=== PATIENT | male | born 1980 | race Caucasian/White ===

== ENCOUNTER 2022-10-22 16:59 | Emergency (ER) | payer OTHER ==
[2022-10-22 17:16] VITALS: BP 125/78; PULSE 75; RESP 16; TEMP 98.6; BMI 30.8
[2022-10-22] MEDS ORDERED: predniSONE 20 MG TABLET (UD) PO ONE (18:24)
[2022-10-22] MEDS ORDERED: predniSONE 20 MG TABLET (UD) ONE (20:15)
== END 2022-10-22 21:01 | disposition home or self-care (01) ==
LOC: JERFT 16:59
DX: L25.9 Unspecified contact dermatitis, unspecified cause (principal)
CPT/HCPCS: 99283-25

== ENCOUNTER 2023-12-02 14:24 | Emergency (ER) | payer OTHER ==
[2023-12-02 14:29] VITALS: BP 125/80; PULSE 81; RESP 18; TEMP 99; BMI 32.7
[2023-12-02] MEDS ORDERED: DEXAMETHASONE SOD PHOSPHATE 10 MG/1 ML VIAL IVPUSH ONE (15:13)
[2023-12-02] MEDS ORDERED: FAMOTIDINE 20 MG/50 ML IVPB 20 MG/50 ML MG IVPB ONE ×2 (15:13→15:34)
[2023-12-02] MEDS ORDERED: CEPHALEXIN MONOHYDRATE 500 MG CAPSULE (UD) PO ONE (15:15)
[2023-12-02] MEDS ORDERED: DEXAMETHASONE SOD PHOSPHATE 10 MG/1 ML VIAL ONE (15:34)
[2023-12-02] MEDS ORDERED: CEPHALEXIN MONOHYDRATE 500 MG CAPSULE (UD) ONE (15:34)
[2023-12-02 16:23] LABS: BASO % 0.6 % (0-2.0); EOS % 9.1 % (0-4.5); HEMATOCRIT 44.4 % (35.4-49); HEMOGLOBIN 15.5 GM/dL (11.7-16.9); LYMPH % 25.5 % (8-40); MCH 39.1 pg (25.7-33.7); MEAN CELL VOLUME 111.6 fl (80-96); MEAN PLT VOLUME 7.7 fl (7.5-11.1); MONO % 5.6 % (3.8-10.2); NEUT % 59.2 % (42.8-82.8); PLATELET COUNT 265 10^3/uL (134-434); RBC 3.98 M/mm3 (4.00-5.60); RDW 15.2 % (11.9-15.9); WHITE BLOOD COUNT 4.2 K/mm3 (4.0-10.0)
[2023-12-02 16:40] LABS: POTASSIUM 4.1 mmol/L (3.5-5.1)
[2023-12-02 16:42] LABS: CALCIUM 8.8 mg/dL (8.5-10.1)
[2023-12-02 16:43] LABS: ALBUMIN 3.8 g/dl (3.4-5.0); BLOOD UREA NITROGEN 13.4 mg/dL (7-18)
[2023-12-02 16:45] LABS: CREATININE 1.1 mg/dL (0.55-1.3)
[2023-12-02 17:15] LABS: ANISOCYTOSIS 2+; MACROCYTOSIS 0; OVALOCYTE 1+
== END 2023-12-02 18:14 | disposition home or self-care (01) ==
LOC: JERFT 14:24
PROC: 3E033GC Introduction of Other Therapeutic Substance into Peripheral Vein, Percutaneous Approach (ICD-10-PCS; principal; 2023-12-02)
PROC: 3E033GC Introduction of Other Therapeutic Substance into Peripheral Vein, Percutaneous Approach (ICD-10-PCS; 2023-12-02)
PROC: 3E033GC Introduction of Other Therapeutic Substance into Peripheral Vein, Percutaneous Approach (ICD-10-PCS; 2023-12-02)
DX: L20.9 Atopic dermatitis, unspecified (principal); R21 Rash and other nonspecific skin eruption
CPT/HCPCS: 36415; 80053; 83036; 85025; 99284-25; J1100

== ENCOUNTER 2023-12-24 16:45 | Emergency (ER) | payer OTHER ==
[2023-12-24 16:51] VITALS: BP 129/87; PULSE 93; RESP 18; TEMP 97.9; BMI 33.0
[2023-12-24] MEDS ORDERED: AMPICILLIN NA/SULBACTAM NA 3 GM in DEXTROSE 5%-WATER 100 ML IVPB ONE (17:21)
[2023-12-24] MEDS ORDERED: methylPREDNISolone NA SUCC 125 MG/2 ML VIAL IVPB ONE (17:21)
[2023-12-24] MEDS ORDERED: AMPICILLIN NA/SULBACTAM NA 3 GM VIAL ONE (18:06)
[2023-12-24] MEDS ORDERED: methylPREDNISolone NA SUCC 125 MG/2 ML VIAL ONE (18:07)
[2023-12-24] MEDS ORDERED: KETOROLAC TROMETHAMINE 30 MG/1 ML VIAL IVPUSH ONE (18:32)
[2023-12-24] MEDS ORDERED: SODIUM CHLORIDE 0.9% 500 ML INFUS.BAG IV ONE (18:32)
[2023-12-24] MEDS ORDERED: FLUCONAZOLE 150 MG TABLET PO ONE (18:36)
[2023-12-24 18:37] LABS: BASO % 0.3 % (0-2.0); EOS % 9.7 % (0-4.5); HEMATOCRIT 42.4 % (35.4-49); HEMOGLOBIN 15.3 GM/dL (11.7-16.9); LYMPH % 40.4 % (8-40); MEAN CELL VOLUME 111.8 fl (80-96); MEAN PLT VOLUME 7.7 fl (7.5-11.1); MONO % 7.7 % (3.8-10.2); NEUT % 41.9 % (42.8-82.8); PLATELET COUNT 221 10^3/uL (134-434); RBC 3.79 M/mm3 (4.00-5.60); RDW 14.5 % (11.9-15.9); WHITE BLOOD COUNT 3.4 K/mm3 (4.0-10.0)
[2023-12-24] MEDS ORDERED: KETOROLAC TROMETHAMINE 30 MG/1 ML VIAL ONE (18:37)
[2023-12-24 18:40] LABS: MCH 40.3 pg (25.7-33.7)
[2023-12-24 18:57] LABS: CALCIUM 9.1 mg/dL (8.5-10.1)
[2023-12-24 18:58] LABS: BLOOD UREA NITROGEN 15.2 mg/dL (7-18)
[2023-12-24 19:01] LABS: CREATININE 1.1 mg/dL (0.55-1.3)
[2023-12-24 19:02] LABS: BILIRUBIN,TOTAL 0.7 mg/dL (0.2-1); TOT PROT 8.3 g/dl (6.4-8.2)
[2023-12-24 19:25] LABS: ANISOCYTOSIS 2+; MACROCYTOSIS 2+
== END 2023-12-24 20:51 | disposition home or self-care (01) ==
LOC: JERFT 16:45
PROC: 3E03329 Introduction of Other Anti-infective into Peripheral Vein, Percutaneous Approach (ICD-10-PCS; principal; 2023-12-24)
PROC: 3E0333Z Introduction of Anti-inflammatory into Peripheral Vein, Percutaneous Approach (ICD-10-PCS; 2023-12-24)
PROC: 3E033GC Introduction of Other Therapeutic Substance into Peripheral Vein, Percutaneous Approach (ICD-10-PCS; 2023-12-24)
DX: R21 Rash and other nonspecific skin eruption (principal); B35.4 Tinea corporis; L03.311 Cellulitis of abdominal wall
CPT/HCPCS: 36415; 80053; 85025; 99284-25

== ENCOUNTER 2024-07-06 18:40 | Inpatient (IN) | payer OTHER ==
[2024-07-06 18:50] VITALS: BMI 30.9
[2024-07-06] MEDS: SODIUM CHLORIDE 0.9% 500 ML INFUS.BAG IV ONE (20:31)
[2024-07-06 20:33] LABS: BASO % 0.2 % (0-2.0); EOS % 2.1 % (0-4.5); HEMATOCRIT 16.6 % (35.4-49); LYMPH % 37.2 % (8-40); MEAN CELL VOLUME 118.9 fl (80-96); MEAN PLT VOLUME 7.3 fl (7.5-11.1); MONO % 2.9 % (3.8-10.2); NEUT % 57.6 % (42.8-82.8); PLATELET COUNT 131 10^3/uL (134-434); RDW 18.5 % (11.9-15.9); WHITE BLOOD COUNT 2.3 K/mm3 (4.0-10.0)
[2024-07-06 20:38] LABS: URINE APPEARANCE CLEAR; URINE BILIRUBIN NEGATIVE (NEGATIVE); URINE COLOR YELLOW; URINE GLUCOSE (UA) NEGATIVE (NEGATIVE); URINE KETONE NEGATIVE (NEGATIVE); URINE LEUK ESTERASE NEGATIVE (NEGATIVE); URINE NITRITE NEGATIVE (NEGATIVE); URINE PROTEIN NEGATIVE (NEGATIVE)
[2024-07-06 20:40] LABS: MCH 42.8 pg (25.7-33.7)
[2024-07-06 20:52] LABS: POTASSIUM 4.2 mmol/L (3.5-5.1)
[2024-07-06 20:54] LABS: CALCIUM 8.6 mg/dL (8.5-10.1)
[2024-07-06 20:55] LABS: BLOOD UREA NITROGEN 15.6 mg/dL (7-18)
[2024-07-06 20:58] LABS: CREATININE 1.2 mg/dL (0.55-1.3)
[2024-07-06 20:59] LABS: BILIRUBIN,TOTAL 1.7 mg/dL (0.2-1)
[2024-07-06 21:18] LABS: BILIRUBIN,DIRECT 0.4 mg/dL (0.0-0.2)
[2024-07-06 21:34] LABS: ANISOCYTOSIS 3+; MACROCYTOSIS 2+; OVALOCYTE 1+; TEAR DROP CELLS 1+
[2024-07-06 21:40] LABS: INR 1.1 (0.83-1.09); PROTHROMBIN TIME (PATIENT) 12.4 SEC (9.7-13.0)
[2024-07-06 21:43] LABS: ACTIVATED PTT 26.2 SECONDS (25.2-36.5)
[2024-07-06 21:51] LABS: HIV INTERPRETATION NEGATIVE (NEGATIVE)
[2024-07-06 21:54] LABS: BILIRUBIN,DIRECT 0.4 mg/dL (0.0-0.2)
[2024-07-06 21:56] LABS: BILIRUBIN,TOTAL 1.7 mg/dL (0.2-1)
[2024-07-06 22:04] LABS: IRON SERUM 172 ug/dL (50-175); TOTAL IRON BINDING CAPACITY 221 ug/dL (250-450)
[2024-07-06 22:13] LABS: POTASSIUM 4.2 mmol/L (3.5-5.1)
[2024-07-06 22:14] LABS: CALCIUM 8.5 mg/dL (8.5-10.1)
[2024-07-06 22:15] LABS: BLOOD UREA NITROGEN 13.6 mg/dL (7-18)
[2024-07-06] MEDS ORDERED: ACETAMINOPHEN 325 MG TABLET (FP) ONE (23:08)
[2024-07-06] MEDS: ACETAMINOPHEN 325 MG TABLET (FP) PO ONE (23:17)
[2024-07-07 02:42] LABS: RETICULOCYTES 2.35 % (0.5-1.5)
[2024-07-07 07:37] LABS: MCH 39.8 pg (25.7-33.7); MCHC 36.5 g/dl (32.0-35.9); MEAN CELL VOLUME 109.1 fl (80-96); MEAN PLT VOLUME 7.5 fl (7.5-11.1); PLATELET COUNT 119 10^3/uL (134-434); RBC 2.02 M/mm3 (4.00-5.60); RDW 29.5 % (11.9-15.9)
[2024-07-07 07:40] LABS: WHITE BLOOD COUNT 1.9 K/mm3 (4.0-10.0)
[2024-07-07 08:08] LABS: CHLORIDE 105 mmol/L (98-107); POTASSIUM 3.9 mmol/L (3.5-5.1); SODIUM 139 mmol/L (136-145)
[2024-07-07 08:31] LABS: ANION GAP 7 mmol/L (4-13); BLOOD UREA NITROGEN 14.5 mg/dL (7-18); CALCIUM 8.6 mg/dL (8.5-10.1); CO2 28 mmol/L (21-32); GLUCOSE,RANDOM 116 mg/dL (74-106); MAGNESIUM 2.3 mg/dL (1.8-2.4)
[2024-07-07 08:34] LABS: PHOSPHOROUS 4.9 mg/dL (2.5-4.9)
[2024-07-07 09:05] LABS: LDH > 4000 U/L (87-246)
[2024-07-07] MEDS: ENOXAPARIN NA (PORCINE) 40 MG/0.4 ML DISP.SYRIN SQ SCH (11:58)
[2024-07-07 12:25] VITALS: RESP 18
[2024-07-07 12:58] LABS: BASO % 0.1 % (0-2.0); EOS % 3.3 % (0-4.5); HEMATOCRIT 20.8 % (35.4-49); HEMOGLOBIN 7.4 GM/dL (11.7-16.9); LYMPH % 51.6 % (8-40); MCH 38.4 pg (25.7-33.7); MCHC 35.6 g/dl (32.0-35.9); MEAN CELL VOLUME 107.8 fl (80-96); MEAN PLT VOLUME 7.3 fl (7.5-11.1); MONO % 2.3 % (3.8-10.2); NEUT % 42.7 % (42.8-82.8); PLATELET COUNT 112 10^3/uL (134-434); RBC 1.93 M/mm3 (4.00-5.60)
[2024-07-07 13:05] LABS: WHITE BLOOD COUNT 1.6 K/mm3 (4.0-10.0)
[2024-07-07] MEDS: CYANOCOBALAMIN (VITAMIN B-12) 1000 MCG/1 ML VIAL IM SCH (13:27)
[2024-07-07 13:43] LABS: ANISOCYTOSIS 3+; MACROCYTOSIS 0; OVALOCYTE 2+; TARGET CELLS 1+
[2024-07-08 10:00] LABS: HEMATOCRIT 22.6 % (35.4-49); HEMOGLOBIN 8.1 GM/dL (11.7-16.9); MCH 39.4 pg (25.7-33.7); MEAN CELL VOLUME 109.5 fl (80-96); MEAN PLT VOLUME 7.4 fl (7.5-11.1); PLATELET COUNT 116 10^3/uL (134-434); RBC 2.06 M/mm3 (4.00-5.60); RDW 29.9 % (11.9-15.9)
[2024-07-08] MEDS: ACETAMINOPHEN 325 MG TABLET (FP) PO PRN (10:29)
[2024-07-08 10:54] LABS: ANISOCYTOSIS 2+; MACROCYTOSIS 2+; OVALOCYTE 1+
[2024-07-08 13:56] VITALS: BP 120/86; PULSE 80; TEMP 98.4
== END 2024-07-08 17:40 | disposition home or self-care (01) | DRG 810 ==
LOC: JER 18:40 → JERBED 21:29 → J6S 07-07 08:34
PROVIDERS: ADMIT Internal Medicine; ATTEND Internal Medicine
DX: D61.818 Other pancytopenia (principal); L29.9 Pruritus, unspecified; E53.8 Deficiency of other specified B group vitamins; G62.9 Polyneuropathy, unspecified; R26.9 Unspecified abnormalities of gait and mobility; D58.9 Hereditary hemolytic anemia, unspecified
CPT/HCPCS: 0241U-QW; 36415; 36430; 80048; 80053; 81003; 82247; 82248; 82272; 82607; 82746; 82962; 83010; 83516; 83540; 83550; 83615; 83735; 84100; 84439; 84443; 85025; 85027; 85045; 85362; 85610; 85730; 86160; 86162; 86340; 86803; 86850; 86880; 86900; 86901; 86922; 87086; 87389; 93005; 93010; 97116-GP; 97162-GP; 99285-25; P9038; P9058

== ENCOUNTER 2024-09-24 17:38 | Emergency (ER) | payer OTHER ==
[2024-09-24 17:45] VITALS: BP 125/72; PULSE 69; RESP 18; TEMP 98.4; BMI 30.2
[2024-09-24 19:11] LABS: BASO % 0.1 % (0-2.0); HEMATOCRIT 42.3 % (35.4-49); LYMPH % 18.4 % (8-40); MCH 28.2 pg (25.7-33.7); MEAN CELL VOLUME 85.4 fl (80-96); MEAN PLT VOLUME 8.6 fl (7.5-11.1); MONO % 5.9 % (3.8-10.2); NEUT % 74.6 % (42.8-82.8); PLATELET COUNT 228 10^3/uL (134-434); RBC 4.96 M/mm3 (4.00-5.60); RDW 15.5 % (11.9-15.9)
[2024-09-24 19:32] LABS: POTASSIUM 3.9 mmol/L (3.5-5.1)
[2024-09-24 19:35] LABS: ALBUMIN 4.2 g/dl (3.4-5.0); BLOOD UREA NITROGEN 19.6 mg/dL (7-18); CALCIUM 9.1 mg/dL (8.5-10.1)
[2024-09-24 19:39] LABS: CREATININE 1.2 mg/dL (0.55-1.3)
[2024-09-24 19:40] LABS: BILIRUBIN,TOTAL 0.4 mg/dL (0.2-1); TOT PROT 7.8 g/dl (6.4-8.2)
[2024-09-24 20:31] LABS: HIV INTERPRETATION NEGATIVE (NEGATIVE)
== END 2024-09-24 23:13 | disposition home or self-care (01) ==
LOC: JERFT 17:38
DX: S82.832P Other fracture of upper and lower end of left fibula, subsequent encounter for closed fracture with malunion (principal); R21 Rash and other nonspecific skin eruption; X50.1XXD Overexertion from prolonged static or awkward postures, subsequent encounter
CPT/HCPCS: 36415; 73610-TC-LT-FY; 80053; 85025; 86803; 87389; 99284-25

== ENCOUNTER 2024-09-29 13:05 | Emergency (ER) | payer OTHER ==
[2024-09-29 13:17] VITALS: BP 114/65; PULSE 60; RESP 18; TEMP 98.6; BMI 32.3
== END 2024-09-29 17:00 | disposition home or self-care (01) ==
LOC: JER 13:05 → JERFT 13:05
DX: M25.572 Pain in left ankle and joints of left foot (principal); W01.0XXA Fall on same level from slipping, tripping and stumbling without subsequent striking against object, initial encounter; X50.1XXA Overexertion from prolonged static or awkward postures, initial encounter
CPT/HCPCS: 73700-TC-RT; 99284-25